=== PATIENT | male | born 1950 | race Caucasian/White ===

== ENCOUNTER 2017-03-16 03:55 | Emergency (ER) | payer BC, MEDICARE ==
[~2017-03-16] VITALS: Ht 185.4 cm; Wt 93.0 kg
--- NOTE | 2017-03-16 04:23 | PHYS DOC ---
Past Medical History Past Medical History: No Pertinent History Past Surgical History: No Surgical History Smoking: Cigarettes Alcohol Use: None Adult General Chief Complaint Chief Complaint: NOSEBLEED HPI HPI Patient is a 66 year old male who presents with nosebleed. He states that he awakened at 0030 am with nosebleed. Initially the left but now it seems like it' s "coming out of both." no trauma. Has had a cold recently. He takes Excedrin with aspirin daily for "pain." No use of anticoagulants. Review of Systems Review of Systems Constitutional: Denies fever or chills Eyes: Denies change in visual acuity, redness, or eye pain HENT: POS nasal congestion but no sore throat; POS nosebleed. Respiratory: POS cough; no shortness of breath Cardiovascular: No chest pain GI: Denies abdominal pain, nausea, vomiting, bloody stools or diarrhea : Denies dysuria or hematuria Musculoskeletal: Denies back pain or joint pain Integument: Denies rash or skin lesions Neurologic: Denies headache, focal weakness or sensory changes All other systems were reviewed and found to be within normal limits, except as documented in this note. Current Medications Current Medications Current Medications Medications (Trade) Dose Ordered Sig/Hola Start Time Stop Time Status Last Admin Dose Admin Lidocaine/ Epinephrine (Xylocaine 2%-Epi 1:100,000) 20 ml 1X ONCE 03/16/17 05:00 03/16/17 05:01 Oxymetazoline HCl (Afrin) 2 spray 1X ONCE 03/16/17 05:00 03/16/17 05:01 Allergies Allergies Allergies Coded Allergies Type Severity Reaction Last Updated Verified No Known Drug Allergies 03/16/17 No Physical Exam Physical Exam Constitutional: Well developed, well nourished, no acute distress, non-toxic appearance. HENT: Normocephalic, atraumatic, bilateral external ears normal, oropharynx moist, no oral exudates, nose with blood in both nares but predominantly left. No masses noted. Eyes: PERRLA, EOMI, conjunctiva normal, no discharge. Neck: Normal range of motion, no tenderness, supple, no stridor. Cardiovascular:Heart rate regular rhythm, no murmur Lungs & Thorax: Bilateral breath sounds clear to auscultation Abdomen: Bowel sounds normal, soft, no tenderness, no masses, no pulsatile masses. Skin: Warm, dry, no erythema, no rash. No petechiae Neurologic: Alert and oriented X 3, normal motor function, normal sensory function, no focal deficits noted. Current Patient Data Vital Signs Vital Signs Date Time Temp Pulse Resp B/P (MAP) Pulse Ox O2 Delivery O2 Flow Rate FiO2 03/16/17 04:06 97.7 107 22 141/91 (108) 98 Room Air 97.7 Course & Med Decision Making Course & Med Decision Making Evaluated patient. He does take aspirin daily and that combined with recent URI/ sinus infection and cold weather snap contributing to nosebleed. At 0500 am: discharged home after packing and observation. Informed him to take Excedrin with tylenol and NOT aspirin. I have spoken with the patient and/or caregivers. I have explained the patient' s condition, diagnosis and treatment plan based on the information available to me at this time. I have answered the patient's and/or caregiver's questions and addressed any concerns. The patient and/or caregivers have as good an understanding of the patient's diagnosis, condition and treatment plan as can be expected at this point. The patient's condition is stable and appropriate for discharge from the emergency department. The patient will pursue further outpatient evaluation with the primary care physician or other designated or consulting physician as outlined in the discharge instructions. The patient and/or caregivers are agreeable to this plan of care and follow-up instructions have been explained in detail. The patient and/or caregivers have received these instructions in written format and have expressed an understanding of the discharge instructions. The patient and/or caregivers are aware that any significant change in condition or worsening of symptoms should prompt an immediate return to this or the closest emergency department or a call to 911. Dragon Disclaimer Dragon Disclaimer This electronic medical record was generated, in whole or in part, using a voice recognition dictation system. Departure Departure Impression: Primary Impression: Epistaxis Disposition: HOME, SELF-CARE Condition: STABLE Referrals: MARY RODRIGUEZ MD Patient Instructions: Nosebleed Additional Instructions: YOU HAVE PACKING PLACED IN YOUR NOSE. YOU NEED TO KEEP IT MOIST WITH SALINE. LEAVE IT IN FOR 48 HOURS IF POSSIBLE. REMOVE IT SATURDAY AT THE DOCTOR'S OFFICE. IF YOU SNEEZE AND IT FALLS OUT; DO NOT TRY TO REPLACE IT. KEEP YOUR NOSE MOIST WITH OINTMENT IN YOUR NOSE (ANTIBIOTIC OR VASELINE) ONCE THE PACKING IS OUT. Nose Bleed Procedure Nose Bleed Procedure Indication: Epistaxis Procedure: The patient was positioned appropriately and the nares were cleared with patient evacuating clots. Afrin with lidocaine with epi soaked cotton balls placed into both nares. Nose re-examined. No bleeding in right. Small oozing in left anterior nares. Silver nitrate used to cauterize. Hemostasis was obtained. Anterior rhinorocket placed in left nares with instructions. The patient tolerated the procedure well. Complications: none. NATALIE WATSON MD Mar 16, 2017 04:23
[2017-03-16] MEDS ORDERED: OXYMETAZOLINE 0.05% NASAL SPRAY 30ML BOTTLE. NS ONE (05:00)
[2017-03-16] MEDS ORDERED: LIDOCAINE 2%/EPI 1:100,000 20 ML VIAL. INJ ONE (05:00)
[2017-03-16] MEDS ORDERED: SILVER NITRATE STICK TP ONE (05:15)
[2017-03-16 05:34] VITALS: BP 141/91
[2017-03-16] MEDS ORDERED: AMOX1TAB61 PO (15:25)
[2017-03-16] MEDS ORDERED: HYDR-971 PO (15:34)
== END 2017-03-16 05:35 | disposition home or self-care (01) ==
LOC: ER 03:55
DX: R04.0 Epistaxis (principal); F17.210 Nicotine dependence, cigarettes, uncomplicated; Z79.82 Long term (current) use of aspirin; Z79.899 Other long term (current) drug therapy
CPT/HCPCS: 30903; 99284; J3490

== ENCOUNTER 2017-03-16 13:15 | Emergency (ER) | payer BC, MEDICARE ==
[~2017-03-16] VITALS: Ht 185.4 cm; Wt 93.0 kg
[2017-03-16 13:50] VITALS: BP 191/103
--- NOTE | 2017-03-16 13:55 | PHYS DOC ---
Past Medical History Past Medical History: No Pertinent History Past Surgical History: No Surgical History Additional Past Surgical Histo: bilat legs R/T blood clots Alcohol Use: None Drug Use: None Adult General Chief Complaint Chief Complaint: NOSEBLEED HPI HPI Patient is a 66 year old male who presents with bleeding from his left nostril with a rhino rocket in place. He states he was seen around 4:30 this morning and the ER physician. A thing his nose and make his nose bleed stopped. He states he had a little bit of oozing all morning and then he sneezed and he started bleeding again. He has any lightheadedness dizziness, nausea or vomiting. He denies any blood thinners. Review of Systems Review of Systems Constitutional: Denies fever or chills [] Eyes: Denies change in visual acuity, redness, or eye pain [] HENT: Denies nasal congestion or sore throat or positive for bloody nose Respiratory: Denies cough or shortness of breath [] Cardiovascular: No additional information not addressed in HPI [] GI: Denies abdominal pain, nausea, vomiting, bloody stools or diarrhea [] : Denies dysuria or hematuria [] Musculoskeletal: Denies back pain or joint pain [] Integument: Denies rash or skin lesions [] Neurologic: Denies headache, focal weakness or sensory changes [] Endocrine: Denies polyuria or polydipsia [] All other systems were reviewed and found to be within normal limits, except as documented in this note. Current Medications Current Medications Current Medications Medications (Trade) Dose Ordered Sig/Hola Start Time Stop Time Status Last Admin Dose Admin Acetaminophen/ Hydrocodone Bitart (Lortab 5/325) 2 tab 1X ONCE 03/16/17 15:45 03/16/17 15:46 DC Amoxicillin/ Clavulanate Potassium (Augmentin 875/ 125mg) 1 tab 1X ONCE 03/16/17 15:45 03/16/17 15:46 DC Oxymetazoline HCl (Afrin) 2 spray 1X ONCE 03/16/17 15:45 03/16/17 15:48 DC Silver Nitrate/ Potassium Nitrate 1 each 1X ONCE 03/16/17 16:15 03/16/17 16:16 DC Allergies Allergies Allergies Coded Allergies Type Severity Reaction Last Updated Verified No Known Drug Allergies 03/16/17 No Physical Exam Physical Exam Constitutional: Well developed, well nourished, no acute distress, non-toxic appearance. [] HENT: Normocephalic, atraumatic, bilateral external ears normal, oropharynx moist, no oral exudates, nose normal, Rapid rhino in the left [place], no bleeding in the posterior pharynx no bleeding noted this time Eyes: PERRLA, EOMI, conjunctiva normal, no discharge. [] Neck: Normal range of motion, no tenderness, supple, no stridor. [] Cardiovascular:Heart rate regular rhythm, no murmur [] Lungs & Thorax: Bilateral breath sounds clear to auscultation [] Abdomen: Bowel sounds normal, soft, no tenderness, no masses, no pulsatile masses. [] Skin: Warm, dry, no erythema, no rash. [] Back: No tenderness, no CVA tenderness. [] Extremities: No tenderness, no cyanosis, no clubbing, ROM intact, no edema. [] Neurologic: Alert and oriented X 3, normal motor function, normal sensory function, no focal deficits noted. [] Psychologic: Affect normal, judgement normal, mood normal. [] Current Patient Data Vital Signs Vital Signs Date Time Temp Pulse Resp B/P (MAP) Pulse Ox O2 Delivery O2 Flow Rate FiO2 03/16/17 13:50 98.1 93 22 99 Room Air 98.1 EKG EKG [] Radiology/Procedures Radiology/Procedures [] Impressions: Epistaxis Course & Med Decision Making Course & Med Decision Making Pertinent Labs and Imaging studies reviewed. (See chart for details) Patient presents with bleeding from his Rhino Rocket. It was inflated and the bleeding has subsided. Spoke with Dr. Lopez with ENT will follow him up on Saturday. He is to start taking Augmentin. Return precautions given. Spoke with him regarding pain control needs requesting something strong and Tylenol spelled discharged with Black Diamond. 1800 he was bleeding around the Rhino Rocket and it was removed and copious amounts of blood was noted from his left Neer. There was enough bleeding that I would not be able to determine where is coming from. I replaced the Rhino Rocket with a 7.5 anterior posterior and explained that we don't have ENT in- house. The patient wanted to be transferred at [facility]. I spoke with the transfer team who recommends patient being sent to the ER. Spoke with the ER physician who accepts the patient. The being transferred via EMS at this time. There is stable condition. Dragon Disclaimer Dragon Disclaimer This electronic medical record was generated, in whole or in part, using a voice recognition dictation system. Departure Departure Impression: Primary Impression: Epistaxis Disposition: 02 TRANSFER [facility] HOSP Condition: STABLE Referrals: MOIRA LLOYD (PCP) Patient Instructions: Nosebleed Additional Instructions: You were seen for your nose bleeding. I inflated the cuff and it seems to have stopped. Please follow the instructions were given before. If the packing comes out keep your nose moist with nasal saline drops and if it starts bleeding again you can use Afrin and hold pressure. It is starts bleeding again return back to ER. You can follow-up with Dr. Elisa Lopez she is located at [address] [place] [address] in [facility]. You can call her office at . She will see you on , please call her office and schedule an exact time on Saturday to see her. You will need take antibiotics for the next 7 days. This will help prevent this infection. Avoid taking your Excedrin or aspirin and Tylenol. Your being discharged with Black Diamond which is a narcotic pain medicine that includes Tylenol with it and therefore he cannot take Tylenol or taking this pain medicine. Please don't drive or drink alcohol while taking Black Diamond as it can impair judgment and make you sleepy. Scripts Hydrocodone/Apap 5-325 (NORCO 5-325 TABLET) 1 Each Tablet 1-2 TAB PO PRN Q6HRS Y for PAIN, #14 TAB 0 Refills Prov: STEVE MAYA MD 03/16/17 Amoxicillin/Potassium Clav (AUGMENTIN 875-125 TABLET) 1 Each Tablet 1 TAB PO BID, #14 TAB Prov: STEVE MAYA MD 03/16/17 STEVE MAYA MD Mar 16, 2017 13:54
[2017-03-16] MEDS ORDERED: AMOX1TAB61 PO (15:25)
[2017-03-16] MEDS ORDERED: HYDR-971 PO (15:34)
[2017-03-16] MEDS ORDERED: AMOXICILLIN/K CLAV 875/125MG TABLET. PO ONE (15:45)
[2017-03-16] MEDS ORDERED: HYDROcodone/APAP 5/325MG 1 TAB TABLET PO ONE (15:45)
[2017-03-16] MEDS ORDERED: OXYMETAZOLINE 0.05% NASAL SPRAY 30ML BOTTLE. NS ONE (15:45)
[2017-03-16] MEDS ORDERED: SILVER NITRATE STICK TP ONE ×2 (15:50→16:15)
== END 2017-03-16 17:38 | disposition short-term general hospital (02) ==
LOC: ER 13:15
DX: R04.0 Epistaxis (principal)
CPT/HCPCS: 30901; 30906; 99285-25